=== PATIENT | female | born 1965 | race African-American/Black ===

== ENCOUNTER → 2016-11-25 | Outpatient (CLI) | payer MEDICAID ==
[2016-11-25 10:26] LABS: APPEARANCE,URINE SLIGHTLY-CLOUDY; BILIRUBIN,URINE NEGATIVE (NEGATIVE); GLUCOSE, URINE NEGATIVE (NEGATIVE); KETONES,URINE NEGATIVE (NEGATIVE); LEUKOCYTE ESTERASE,URINE TRACE (NEGATIVE); NITRITE,URINE POSITIVE (NEGATIVE); PROTEIN,URINE 30 mg/dL (NEGATIVE); URINE SPECIFIC GRAVITY 1.015; UROBILINOGEN,URINE NEGATIVE mg/dL (<2.0)
[2016-11-25 10:39] LABS: ANION GAP 9 (5-19); BLOOD UREA NITROGEN 16 mg/dL (7-20); CALCIUM 9.4 mg/dL (8.4-10.2); CARBON DIOXIDE 29 mmol/L (22-30); CHLORIDE 105 mmol/L (98-107); CREATININE RESULT 1.13 mg/dL (0.52-1.25); GLUCOSE 100 mg/dL (75-110); POTASSIUM 4.7 mmol/L (3.6-5.0); SODIUM 143.4 mmol/L (137-145)
[2016-11-26 12:38] LABS: CREATININE URINE 104.1 mg/dL (Not Estab.); MICROALBUMIN URINE 212.2 ug/mL (Not Estab.)
== END ==
LOC: OD 08:56
PROVIDERS: ATTEND Internal Medicine Nephrology
DX: N18.2 Chronic kidney disease, stage 2 (mild) (principal); R80.9 Proteinuria, unspecified
CPT/HCPCS: 36415; 80048; 81001; 82043; 82570

== ENCOUNTER → 2017-02-08 | Outpatient (CLI) | payer MEDICAID ==
--- NOTE | 2017-02-09 08:22 | XCELERA REPORT ---
[address] [address] Lower Extremity Arterial Evaluation Name: UYEN PAL Alec Age: 51 yrs Gender: Female : 1965 Patient Status: Outpatient Patient Location: Study Date: 02/08/2017 07:57 AM Procedure: A color flow and duplex scan of the lower extremity arteries was performed bilaterally with velocity and waveform anaylsis. Reason For Study: PVD Ordering Physician: ANGIE DOOLEY Performed By: Anne-Marie Briones Measurements and Calculations Right Left FLOOR PLAN ADJUSTER PSV 128.9 115.8 cm/sec Prox PFA PSV -63.5 53.1 cm/sec Prox SFA PSV 116.3 120.7 cm/sec Mid SFA PSV -86.4 -93.8 cm/sec Dist SFA PSV -90.4 -87.9 cm/sec Prox Pop A PSV 143.2 57.0 cm/sec Dist TAY PSV 65.3 59.7 cm/sec Dist COMMUNICATION ELECTRONIC TECHNICIAN PSV 136.9 144.6 cm/sec Tan Pedis PSV 86.8 41.5 cm/sec Right Side Arterial Evaluation Normal velocity and triphasic waveforms noted from the Common Femoral artery to the infregeniculate vessels. 0 % stenosis noted. Ankle Brachial index was not obtainable, due to non compressibility. PPG's are normal. Left Side Arterial Evaluation Normal velocity and triphasic waveforms noted from the Common Femoral artery to the infrageniculate vessels. 0 % stenosis noted. Ankle Brachial index was not obtainable, due to non compressibility. PPG's have moderately diminished amplitude, otherwise normal waveform. Interpretation Summary Mild hemodynamically significant lesions in the bilateral lower extremities, on duplex imaging, at rest. : ANGIE DOOLEY > Amadou Gar
== END ==
LOC: SP 07:38
PROVIDERS: ATTEND Podiatrist Foot & Ankle Surgery
DX: I73.9 Peripheral vascular disease, unspecified (principal)
CPT/HCPCS: 93925

== ENCOUNTER 2017-03-25 14:29 | Emergency (ER) | payer MEDICAID ==
[2017-03-25 14:38] VITALS: BP 180/108
--- NOTE | 2017-03-25 14:57 | ER Document Report ---
ED General - General Chief Complaint: Foot Injury Stated Complaint: FELL,RIGHT FOOT PAIN Time Seen by Provider: 03/25/17 14:55 Mode of Arrival: Ambulatory Information source: Patient Notes: Patient is a 51-year-old female who presents with right foot pain and swelling that started approximately noon today. She states she tripped in her left leg gave out when she was coming out of the store causing her to twist her right ankle and fell to the ground. She denies any head injury or loss of consciousness. She endorses associated tenderness and swelling but denies any fever, chills, numbness, tingling, weakness. Pain is worse with weightbearing. She has not taken any pain medication for this. TRAVEL OUTSIDE OF THE [place] IN LAST 30 DAYS: No - Related Data Allergies/Adverse Reactions: iodine [Iodine] Allergy (Intermediate, Verified 03/25/17 14:36) swelling, hives codeine [Codeine] Allergy (Unknown, Verified 03/25/17 14:36) VOMITING, TROUBLE BREATHING Penicillins Allergy (Unknown, Verified 03/25/17 14:36) Swelling Past Medical History - General Information source: Patient - Social History Smoking Status: Never Smoker Frequency of alcohol use: None Drug Abuse: None Family History: None - Past Medical History Cardiac Medical History: Reports: Hx Coronary Artery Disease, Hx Hypercholesterolemia, Hx Hypertension Denies: Hx Heart Attack Pulmonary Medical History: Reports: Hx Asthma Denies: Hx Bronchitis, Hx COPD, Hx Pneumonia, Hx Tuberculosis Neurological Medical History: Denies: Hx Cerebrovascular Accident, Hx Seizures Endocrine Medical History: Reports: Hx Diabetes Mellitus Type 2 Renal/ Medical History: Denies: Hx Peritoneal Dialysis Musculoskeltal Medical History: Denies Hx Arthritis Psychiatric Medical History: Reports: Hx Depression Past Surgical History: Reports: Hx Section - x2, Hx Cholecystectomy, Hx Hysterectomy - Immunizations Hx Diphtheria, Pertussis, Tetanus Vaccination: Yes Hx Pneumococcal Vaccination: 08/18/11 Review of Systems - Review of Systems Constitutional: No symptoms reported EENT: No symptoms reported Cardiovascular: No symptoms reported Respiratory: No symptoms reported Gastrointestinal: No symptoms reported Genitourinary: No symptoms reported Female Genitourinary: No symptoms reported Musculoskeletal: See HPI Skin: No symptoms reported Hematologic/Lymphatic: No symptoms reported Neurological/Psychological: No symptoms reported Physical Exam - Vital signs Vitals: Temp Pulse Resp BP Pulse Ox 97.2 F 74 18 180/108 H 100 03/25/17 14:31 03/25/17 14:31 03/25/17 14:31 03/25/17 14:31 03/25/17 14:31 - Notes Notes: PHYSICAL EXAM: CONSTITUTIONAL: Alert and oriented, well-appearing and in no acute distress. HENT: Normocephalic, atraumatic. Moist mucous membranes. EYES: Pupils equal round and reactive to light, EOM intact. Sclera anicteric, conjunctiva are normal. No entrapment. NECK: supple without lymphadenopathy. No midline tenderness or paraspinous muscle spasms. No step-offs or deformities. ROM intact. HEART: Regular rate and rhythm without murmurs. LUNGS: CTAB and equal. No wheezes, rales or rhonchi. EXTREMITIES: Right foot - tender to palpation over mid-distal tarsal/ metatarsals with soft tissue swelling, no erythema, warmth, ecchymosis or obvious deformity. Distal pulses intact. no pitting edema. No cyanosis. Cap Refill <3 seconds. NEURO: Cranial nerves grossly intact. Normal sensory/motor exams. PSYCH: Normal mood, normal affect. SKIN: Warm and dry. Normal turgor. No rashes or lesions noted. Course - Re-evaluation Re-evalutation: 03/25/17 15:14 Patient seen and examined. Significant swelling to dorsal surface of foot without deformity, neurovascular intact. Will give pain meds here. 03/25/17 16:14 Reviewed imaging studies - soft tissue swelling without fracture or dislocation. Discussed results with patient. Given DEEPAK wrap and post-op shoe for comfort and will give script for NSAIDs. Discussed RICE instructions, f/u with primary care doctor. At this time, will discharge with return precautions and follow-up recommendations. Verbal discharge instructions given at the bedside and opportunity for questions given. Medication warnings reviewed. Patient is in agreement with this plan and has verbalized understanding of return precautions and the need for primary care follow-up in the next 24-72 hours. - Vital Signs Vital signs: Temp Pulse Resp BP Pulse Ox 97.2 F 74 18 180/108 H 100 03/25/17 14:31 03/25/17 14:31 03/25/17 14:31 03/25/17 14:31 03/25/17 14:31 Procedures - Immobilization Right Dorsal Foot Pre-Proc Neuro Vasc Exam: Normal Immobilizer type: Deepak wrap, Post-op shoe Performed by: PCT Post-Proc Neuro Vasc Exam: Normal Alignment checked and good: Yes Discharge - Discharge Clinical Impression: Contusion of right foot, initial encounter Fall, accidental Qualifiers: Encounter type: initial encounter Qualified Code(s): W19.XXXA - Unspecified fall, initial encounter Condition: Stable Disposition: HOME, SELF-CARE Additional Instructions: You have been prescribed an anti-inflammatory,do not take with ibuprofen/motrin , advil. You can take tylenol with this medication. SPRAIN: Your injury is a sprain. A sprain results from stretching or tearing of the ligaments, usually from a twisting injury. The ligaments will require time and protection in order to heal properly. Many sprains are quite disabling and should be taken seriously. The usual initial treatment of sprains is cold packs, elevation, and rest of the injured area. Your physician has assessed the seriousness of your ligament injury, and has outlined a treatment plan. Understand that this treatment may change, depending on how you progress. If a re-examination was recommended, it is important that you follow up as instructed. Call the doctor any time if there is severe pain, numbness, or loss of function in the injured area. DEEPAK WRAP: A compression dressing (deepak wrap) has been placed. This helps hold the area still. It limits swelling and internal bleeding. The wrap should be comfortably snug -- not tight. You should feel a sense of pressure, but not severe pain under the wrap. Unless the physician tells you otherwise, you can adjust the wrap for comfort. If the wrap causes symptoms suggesting it's too tight -- uncomfortable pressure, swelling or discoloration beyond the wrap, numbness, or severe pain - - you must loosen the wrap. If these symptoms don't resolve promptly, return for re-evaluation. ICE & ELEVATION: Apply ice packs frequently against the painful area. Many different schedules are recommended, such as "20 minutes on, 20 minutes off" or "one hour ice, two hours rest." If you need to work, you may need to go longer between ice treatments. You should plan to have the area ice packed AT LEAST one- fourth of the time. The ice should be applied over the wrap, tape, or splint, or over a layer of cloth -- not directly against the skin. Some ice bags have a built-in cloth and can be put directly on the skin. Your injured part should be elevated as much as possible over the next 48 hours. Try to keep the injury above the level of the heart. Avoid use of the injured area. Elevation and rest will decrease the swelling. USE OF AXGO-MRG-[id number] IBUPROFEN: Ibuprofen (Advil, Nuprin, Medipren, Motrin IB) is a medication for fever and pain control. In addition, it has anti- inflammatory effects which may be beneficial, especially in the treatment of injuries. It's best to take ibuprofen with food. Persons with ulcer disease or allergy to aspirin should notify their physician of this before taking ibuprofen. Ibuprofen can be given every four to six hours, for a total of four doses daily. Age Pain or fever dose Antiinflammatory dose 6-8 yr 200 mg (1 tab) 200 mg (1 tab) 9-11 yr 200 mg (1 tab) 200-400 mg (1-2 tab) 11-14 yr 200-400 mg (1-2 tab) 400 mg (2 tab) 15-adult 400 mg (2 tab) 600 mg (3 tab) FOLLOW-UP CARE: If you have been referred to a physician for follow-up care, call the physician s office for an appointment as you were instructed or within the next two days. If you experience worsening or a significant change in your symptoms, notify the physician immediately or return to the Emergency Department at any time for re-evaluation. Prescriptions: Ketorolac Tromethamine [Toradol 10 mg Tablet] 10 mg PO Q8HP PRN #20 tablet PRN Reason: Forms: Elevated Blood Pressure Referrals: MARBELLA INMAN MD [Primary Care Provider] - Follow up in 3-5 days
[2017-03-25] MEDS ORDERED: IBUPROFEN 600 MG TABLET PO ONE (15:12)
--- NOTE | 2017-03-25 15:48 | RADIOLOGY REPORT (SQ) ---
EXAM DESCRIPTION: FOOT RIGHT COMPLETE COMPLETED DATE/TIME: 03/25/2017 2:59 pm REASON FOR STUDY: fall COMPARISON: None. NUMBER OF VIEWS: Three views. TECHNIQUE: AP, lateral and oblique radiographic images acquired of the right foot. LIMITATIONS: None. FINDINGS: MINERALIZATION: Normal. BONES: No acute fracture or dislocation. No worrisome bone lesions. JOINTS: Degenerative changes. SOFT TISSUES: Diffuse swelling. No foreign body. OTHER: No other significant finding. IMPRESSION: Soft tissue injury. TECHNICAL DOCUMENTATION: JOB ID: [id number] [employer]- All Rights Reserved
== END 2017-03-25 16:35 | disposition home or self-care (01) ==
LOC: ER 14:29
DX: S90.31XA Contusion of right foot, initial encounter (principal); M79.89 Other specified soft tissue disorders; X50.1XXA Overexertion from prolonged static or awkward postures, initial encounter
CPT/HCPCS: 99283; 73630; J3490

== ENCOUNTER 2017-10-21 06:20 | Day surgery (SDC) | payer MEDICAID ==
[2017-10-20 15:09] LABS: ABSOLUTE LYMPHOCYTES (AUTO) 1.4 10^3/uL (0.5-4.7); ABSOLUTE MONOCYTES (AUTO) 0.2 10^3/uL (0.1-1.4); BASOPHILS % (AUTO) 0.8 % (0-2); EOSINOPHILS % (AUTO) 0.9 % (0-6); HEMATOCRIT 37.7 % (36.0-47.0); HEMOGLOBIN 12.7 g/dL (12.0-15.5); LYMPHOCYTES % (AUTO) 37.2 % (13-45); MEAN CORPUSCULAR HEMOGLOBIN 27.6 pg (27.0-33.4); MEAN CORPUSCULAR HGB CONC 33.6 g/dL (32.0-36.0); MEAN CORPUSCULAR VOLUME 82 fl (80-97); MONOCYTES % (AUTO) 6.7 % (3-13); PLATELET COUNT 201 10^3/uL (150-450); RED CELL DISTRIBUTION WIDTH 14.2 % (11.5-14.0); SEGMENTED NEUTROPHILS % (AUTO) 54.4 % (42-78); TOTAL CELLS COUNTED % (AUTO) 100 %; WHITE BLOOD COUNT 3.6 10^3/uL (4.0-10.5)
[2017-10-20 15:16] LABS: APPEARANCE,URINE SLIGHTLY-CLOUDY; BILIRUBIN,URINE NEGATIVE (NEGATIVE); COLOR,URINE YELLOW; GLUCOSE, URINE NEGATIVE (NEGATIVE); KETONES,URINE NEGATIVE (NEGATIVE); LEUKOCYTE ESTERASE,URINE TRACE (NEGATIVE); NITRITE,URINE POSITIVE (NEGATIVE); PROTEIN,URINE 100 mg/dL (NEGATIVE); URINE SPECIFIC GRAVITY 1.017; UROBILINOGEN,URINE NEGATIVE mg/dL (<2.0)
[~2017-10-21 06:20] MED LIST: CEFAZOLIN 1 GM/D5W RTU 1 GM/50 ML RTUPB IV PRN; CLINDAMYCIN 600 MG/D5W RTU 600 MG/50 ML RTUPB IV PRN; RINGERS SOLUTION,LACTATED 1,000 ML IV PRN
[2017-10-21] MEDS ORDERED: DIPHENHYDRAMINE HCL 50 MG/ML VIAL ONE (06:52)
[2017-10-21] MEDS ORDERED: LIDOCAINE 2% INJ (20 MG/ML) 20 ML MDV ONE (06:52)
[2017-10-21] MEDS ORDERED: FENTANYL CITRATE INJ/PF 100 MCG/2 ML AMPUL ONE ×2 (06:53)
[2017-10-21] MEDS ORDERED: MIDAZOLAM 2 MG/2 ML INJ ONE (06:53)
[2017-10-21] MEDS ORDERED: BUPIVACAINE HCL 0.5 % INJ/PF 30 ML SDV ONE (06:53)
[2017-10-21] MEDS ORDERED: PROPOFOL INJ 200 MG/20 ML VIAL IV ONE (06:54)
[2017-10-21] MEDS ORDERED: LIDOCAINE 2% INJ-PF (20 MG/ML) 10 ML AMPUL ONE (06:54)
[2017-10-21] MEDS ORDERED: KETOROLAC TROMETHAMINE 60 MG/2 ML SDV ONE (06:54)
--- NOTE | 2017-10-21 13:42 | EKG REPORT ---
SEVERITY:- ABNORMAL ECG - SINUS RHYTHM PROBABLE LEFT ATRIAL ABNORMALITY ABNORMAL T, CONSIDER ISCHEMIA, ANT-LAT LEADS : Confirmed by: Isaiah Dior MD 21-Oct-2017 13:40:55
== END 2017-10-21 08:55 | disposition home or self-care (01) ==
LOC: SC 06:20
PROVIDERS: ATTEND Podiatrist Foot & Ankle Surgery
DX: M20.12 Hallux valgus (acquired), left foot (principal); Z53.8 Procedure and treatment not carried out for other reasons; I10 Essential (primary) hypertension; E11.9 Type 2 diabetes mellitus without complications; J45.909 Unspecified asthma, uncomplicated; Z88.5 Allergy status to narcotic agent; Z88.0 Allergy status to penicillin; Z79.899 Other long term (current) drug therapy; Z79.84 Long term (current) use of oral hypoglycemic drugs; Z79.51 Long term (current) use of inhaled steroids
CPT/HCPCS: 36415; 82962; 85025; 81001; 93005; 93010; 28306; J2250; S0077; J3010; J2704; J3490; 1480; J1200; J1885

== ENCOUNTER 2017-10-21 11:36 | Inpatient (IN) | payer MEDICAID ==
--- NOTE | 2017-10-21 12:35 | ER Document Report ---
ED Medical Screen (RME) - General Chief Complaint: High Blood Pressure Stated Complaint: BLOOD PRESSURE ISSUES Time Seen by Provider: 10/21/17 12:26 Notes: 50-year-old female patient with difficult to control hypertension on multiple hypertensive medications. She was at the surgery care today for elective surgery on the foot, and her blood pressure was elevated, after she was put on for anesthesia the blood pressure went quite high. The procedure was not done. He was sent to her primary care provider's office. She was given 0.6 mg of clonidine in the office which is her normal 3 time a day dose of that medication. She was sent to the emergency room, according to the patient she was supposed to be admitted for 24 hour observation. At this time she feels well, she had a slight headache earlier. I have greeted and performed a rapid initial assessment of this patient. A comprehensive ED assessment and evaluation of the patient, analysis of test results and completion of the medical decision making process will be conducted by additional ED providers. TRAVEL OUTSIDE OF THE [place] IN LAST 30 DAYS: No - Related Data Allergies/Adverse Reactions: iodine [Iodine] Allergy (Intermediate, Verified 10/21/17 12:20) swelling, hives codeine [Codeine] Allergy (Unknown, Verified 10/21/17 12:20) VOMITING, TROUBLE BREATHING Penicillins Allergy (Unknown, Verified 10/21/17 12:20) Swelling Past Medical History - Social History Chew tobacco use (# tins/day): No Frequency of alcohol use: None Drug Abuse: None - Past Medical History Cardiac Medical History: Reports: Hx Coronary Artery Disease, Hx Hypercholesterolemia, Hx Hypertension Denies: Hx Heart Attack Pulmonary Medical History: Reports: Hx Asthma Denies: Hx Bronchitis, Hx COPD, Hx Pneumonia, Hx Tuberculosis Neurological Medical History: Denies: Hx Cerebrovascular Accident, Hx Seizures Endocrine Medical History: Reports: Hx Diabetes Mellitus Type 2 Renal/ Medical History: Denies: Hx Peritoneal Dialysis GI Medical History: Denies: Hx Hepatitis, Hx Hiatal Hernia, Hx Ulcer Musculoskeltal Medical History: Denies Hx Arthritis Psychiatric Medical History: Reports: Hx Depression Infectious Medical History: Denies: Hx Hepatitis Past Surgical History: Reports: Hx Section, Hx Cholecystectomy, Hx Hysterectomy. Denies: Hx Mastectomy, Hx Open Heart Surgery, Hx Pacemaker - Immunizations Hx Diphtheria, Pertussis, Tetanus Vaccination: Yes Physical Exam - Vital signs Vitals: Temp Pulse Resp BP Pulse Ox 97.9 F 82 18 202/103 H 97 10/21/17 11:47 10/21/17 11:47 10/21/17 11:47 10/21/17 11:47 10/21/17 11:47 Course - Vital Signs Vital signs: Temp Pulse Resp BP Pulse Ox 97.9 F 82 18 202/103 H 97 10/21/17 11:47 10/21/17 11:47 10/21/17 11:47 10/21/17 11:47 10/21/17 11:47
[2017-10-21 13:30] LABS: ABSOLUTE LYMPHOCYTES (AUTO) 1.6 10^3/uL (0.5-4.7); ABSOLUTE MONOCYTES (AUTO) 0.3 10^3/uL (0.1-1.4); ABSOLUTE NEUT (AUTO) 2.1 10^3/uL (1.7-8.2); APPEARANCE,URINE CLEAR; BASOPHILS % (AUTO) 0.9 % (0-2); BILIRUBIN,URINE NEGATIVE (NEGATIVE); COLOR,URINE COLORLESS; EOSINOPHILS % (AUTO) 0.8 % (0-6); GLUCOSE, URINE NEGATIVE (NEGATIVE); HEMOGLOBIN 13.5 g/dL (12.0-15.5); KETONES,URINE NEGATIVE (NEGATIVE); LEUKOCYTE ESTERASE,URINE NEGATIVE (NEGATIVE); LYMPHOCYTES % (AUTO) 40.2 % (13-45); MEAN CORPUSCULAR HEMOGLOBIN 27.4 pg (27.0-33.4); MEAN CORPUSCULAR HGB CONC 32.8 g/dL (32.0-36.0); MEAN CORPUSCULAR VOLUME 84 fl (80-97); MONOCYTES % (AUTO) 6.3 % (3-13); NITRITE,URINE NEGATIVE (NEGATIVE); PLATELET COUNT 196 10^3/uL (150-450); PROTEIN,URINE 30 mg/dL (NEGATIVE); RED BLOOD COUNT 4.92 10^6/uL (3.72-5.28); RED CELL DISTRIBUTION WIDTH 14.6 % (11.5-14.0); SEGMENTED NEUTROPHILS % (AUTO) 51.8 % (42-78); TOTAL CELLS COUNTED % (AUTO) 100 %; URINE SPECIFIC GRAVITY 1.004; UROBILINOGEN,URINE NEGATIVE mg/dL (<2.0)
[2017-10-21] MEDS ORDERED: HYDRALAZINE HCL INJ/PF 20 MG/1 ML SDV IV ONE (13:30)
--- NOTE | 2017-10-21 13:32 | ER Document Report ---
ED General - General Chief Complaint: High Blood Pressure Stated Complaint: BLOOD PRESSURE ISSUES Time Seen by Provider: 10/21/17 12:26 Mode of Arrival: Ambulatory Information source: Patient Notes: 52-year-old female extensive history of hypertension presents with complaints of high blood pressure mild headache. Patient notes that symptoms have been ongoing for a few days, she took her medications went to have surgery performed on her left foot today but it was noted that her blood pressure was 220s over 120s, she was sent to her primary care physician's office who immediately sent her in for evaluation TRAVEL OUTSIDE OF THE [place] IN LAST 30 DAYS: No - HPI Onset: Last week Onset/Duration: Persistent Quality of pain: Achy Severity: Mild Pain Level: 1 Associated symptoms: Headache Exacerbated by: Denies Relieved by: Denies Similar symptoms previously: Yes Recently seen / treated by doctor: Yes - Related Data Allergies/Adverse Reactions: iodine [Iodine] Allergy (Intermediate, Verified 10/21/17 12:20) swelling, hives codeine [Codeine] Allergy (Unknown, Verified 10/21/17 12:20) VOMITING, TROUBLE BREATHING Penicillins Allergy (Unknown, Verified 10/21/17 12:20) Swelling Past Medical History - Social History Smoking Status: Never Smoker Cigarette use (# per day): No Chew tobacco use (# tins/day): No Smoking Education Provided: No Frequency of alcohol use: None Drug Abuse: None Family History: Hypertension, Other Patient has suicidal ideation: No Patient has homicidal ideation: No - Past Medical History Cardiac Medical History: Reports: Hx Coronary Artery Disease, Hx Hypercholesterolemia, Hx Hypertension Denies: Hx Heart Attack Pulmonary Medical History: Reports: Hx Asthma Denies: Hx Bronchitis, Hx COPD, Hx Pneumonia, Hx Tuberculosis Neurological Medical History: Denies: Hx Cerebrovascular Accident, Hx Seizures Endocrine Medical History: Reports: Hx Diabetes Mellitus Type 2 Renal/ Medical History: Denies: Hx Peritoneal Dialysis GI Medical History: Denies: Hx Hepatitis, Hx Hiatal Hernia, Hx Ulcer Musculoskeltal Medical History: Denies Hx Arthritis Psychiatric Medical History: Reports: Hx Depression Infectious Medical History: Denies: Hx Hepatitis Past Surgical History: Reports: Hx Section, Hx Cholecystectomy, Hx Hysterectomy. Denies: Hx Mastectomy, Hx Open Heart Surgery, Hx Pacemaker - Immunizations Hx Diphtheria, Pertussis, Tetanus Vaccination: Yes Hx Pneumococcal Vaccination: 08/18/11 Review of Systems - Review of Systems Notes: REVIEW OF SYSTEMS: CONSTITUTIONAL : Denies fever, chills, or sweats. Denies recent illness. EENT: Denies eye, ear, throat, or mouth pain or symptoms. Denies nasal or sinus congestion or discharge. Denies throat, tongue, or mouth swelling or difficulty swallowing. CARDIOVASCULAR: Denies chest pain. Denies palpitations or racing or irregular heart beat. Denies ankle edema. RESPIRATORY: Denies cough, cold, or chest congestion. Denies shortness of breath, difficulty breathing, or wheezing. GASTROINTESTINAL: Denies abdominal pain or distention. Denies nausea, vomiting , or diarrhea. Denies blood in vomitus, stools, or per rectum. Denies black, tarry stools. Denies constipation. GENITOURINARY: Denies difficulty urinating, painful urination, burning, frequency, blood in urine, or discharge. FEMALE GENITOURINARY: Denies vaginal bleeding, heavy or abnormal periods, irregular periods. Denies vaginal discharge or odor. MUSCULOSKELETAL: Denies back or neck pain or stiffness. Denies joint pain or swelling. SKIN: Denies rash, lesions or sores. HEMATOLOGIC : Denies easy bruising or bleeding. LYMPHATIC: Denies swollen, enlarged glands. NEUROLOGICAL: Admits to headache PSYCHIATRIC: Denies anxiety or stress. Denies depression, suicidal ideation, or homicidal ideation. ALL OTHER SYSTEMS REVIEWED AND NEGATIVE. PHYSICAL EXAMINATION: GENERAL: Well-appearing, well-nourished and in no acute distress. Patient is noted to be significantly hypertensive HEAD: Atraumatic, normocephalic. EYES: Pupils equal round and reactive to light, extraocular movements intact, conjunctiva are normal. ENT: Nares patent, oropharynx clear without exudates. Moist mucous membranes. NECK: Normal range of motion, supple without lymphadenopathy LUNGS: Breath sounds clear to auscultation bilaterally and equal. No wheezes rales or rhonchi. HEART: Regular rate and rhythm without murmurs ABDOMEN: Soft, nontender, nondistended abdomen. No guarding, no rebound. No masses appreciated. Female : deferred Musculoskeletal: Normal range of motion, no pitting or edema. No cyanosis. NEUROLOGICAL: Cranial nerves grossly intact. Normal speech, normal gait. Normal sensory, motor exams PSYCH: Normal mood, normal affect. SKIN: Warm, Dry, normal turgor, no rashes or lesions noted. Dictation was performed using [employer] voice recognition software Physical Exam - Vital signs Vitals: Temp Pulse Resp BP Pulse Ox 97.9 F 82 18 202/103 H 97 10/21/17 11:47 10/21/17 11:47 10/21/17 11:47 10/21/17 11:47 10/21/17 11:47 Course - Re-evaluation Re-evalutation: 10/21/17 17:04 Upon arrival to the emergency department patient was noted to be hypertensive, she had been given 0.6 mg of clonidine by her primary care physician, blood pressure did decrease to 200/110, given mild improvement I did try hydralazine through the IV blood pressure 1 point did go down to 170s over 90s but immediately returned. Patient given level of hypertension will be observed in the IMCU - Vital Signs Vital signs: Temp Pulse Resp BP Pulse Ox 97.9 F 82 20 215/129 H 100 10/21/17 11:47 10/21/17 11:47 10/21/17 16:31 10/21/17 16:31 10/21/17 16:31 - Laboratory Result Diagrams: 10/21/17 12:47 10/21/17 12:47 Laboratory results interpreted by me: 10/21/17 10/21/17 10/21/17 12:47 12:47 12:47 RDW 14.6 H Sodium 145.1 H Est GFR ( Amer) 57 L Est GFR (Non-Af Amer) 47 L Creatine Kinase 278 H Urine Protein 30 H - Diagnostic Test Radiology reviewed: Image reviewed - CT head noted no acute abnormality, Reports reviewed - EKG Interpretation by [place] EKG shows normal: Sinus rhythm, Banks, Intervals, QRS Complexes Critical Care Note - Critical Care Note Total time excluding time spent on procedures (mins): 39 Comments: 39 minutes of critical care time spent in direct contact evaluating and reevaluating the patient, treating symptoms, reviewing labs and studies and speaking with family and consultants excluding any procedures Discharge - Discharge Clinical Impression: Hypertensive emergency Headache Qualifiers: Headache type: unspecified Headache chronicity pattern: unspecified pattern Intractability: not intractable Qualified Code(s): R51 - Headache Condition: Stable Disposition: ADMITTED OBSERVATION Admitting Provider: Lacie Unit Admitted: [facility]
--- NOTE | 2017-10-21 13:42 | EKG REPORT ---
SEVERITY:- ABNORMAL ECG - SINUS RHYTHM LEFT ATRIAL ABNORMALITY PROBABLE LEFT VENTRICULAR HYPERTROPHY ABNORMAL T, CONSIDER ISCHEMIA, LATERAL LEADS : Confirmed by: Isaiah Diro MD 21-Oct-2017 13:40:43
[2017-10-21 13:53] LABS: ALANINE AMINOTRANSFERASE 32 U/L (9-52); ALBUMIN 4.5 g/dL (3.5-5.0); ALKALINE PHOSPHATASE 77 U/L (38-126); ANION GAP 13 (5-19); ASPARTATE AMINO TRANSFERASE 29 U/L (14-36); BILIRUBIN,DIRECT 0.4 mg/dL (0.0-0.4); BILIRUBIN,TOTAL 0.8 mg/dL (0.2-1.3); BLOOD UREA NITROGEN 20 mg/dL (7-20); CALCIUM 9.8 mg/dL (8.4-10.2); CARBON DIOXIDE 29 mmol/L (22-30); CHLORIDE 103 mmol/L (98-107); CREATINE KINASE 278 U/L (30-135); GLUCOSE 102 mg/dL (75-110); SODIUM 145.1 mmol/L (137-145); TOTAL PROTEIN 8.2 g/dL (6.3-8.2)
[2017-10-21] MEDS ORDERED: HYDRALAZINE HCL 50 MG TABLET PO ONE (14:47)
--- NOTE | 2017-10-21 17:46 | PDOC H&P ---
History of Present Illness Admission Date/PCP: 10/21/17 15:22 MARBELLA INMAN History of Present Illness: UYEN PAL is a 52 year old female known to my practice who was referred to the office earlier today from [facility] due severely elevated blood pressure while trying to get a left foot osteotomy procedure. Patient reported associated feeling of tiredness and wobbling gait with walking. She reported slight headache. She denied definite chest pain, palpitation or difficulty with breathing. In the office her blood pressure was still very elevated at about 201/113 mmHg necessitating administration of Clonidine 0.2 mg orally x 1 dose and referral to the ED at [facility] for further evaluation and management. Patient reported compliance with her medication and dietary restrictions. She denied illicit drug usage, alcohol, or tobacco product usage. Her elevation in the ED was significant for elevated blood pressure with slight response to IV Hydralazine administration but rebound in less than 1 hour thereafter. She was started on oral Hydralazine with IV administration if systolic blood pressure is over 160mmHg. Caution was exercise due to patient's long standing history of severe hypertension and extensive workup did not reveal any causative factor. Her morbidities include Asthma, Hypertension, Coronary Artery Disease, Hyperlipidemia, Diabetes Mellitus Type 2, and Depression. She was advised hospitalization on observation bed for further evaluation and management of her severe hypertension with headache. Past Medical History Cardiac Medical History: Reports: Coronary Artery Disease, Hyperlipidema, Hypertension Denies: Myocardial Infarction Pulmonary Medical History: Reports: Asthma Denies: Bronchitis, Chronic Obstructive Pulmonary Disease (COPD), Pneumonia, Tuberculosis Neurological Medical History: Denies: Seizures Endocrine Medical History: Reports: Diabetes Mellitus Type 2 GI Medical History: Denies: Hepatitis, Hiatal Hernia Musculoskeltal Medical History: Denies: Arthritis Psychiatric Medical History: Reports: Depression Hematology: Denies: Anemia, Sickle Cell Disease Past Surgical History Past Surgical History: Reports: Section, Cholecystectomy, Hysterectomy Denies: Amputation, Mastectomy, Pacemaker Social History Smoking Status: Never Smoker Hx Recreational Drug Use: No Hx Prescription Drug Abuse: No - Advance Directive Resuscitation Status: Full Code Family History Family History: Hypertension, Other Parental Family History Reviewed: Yes Children Family History Reviewed: Yes Sibling(s) Family History Reviewed.: Yes Medication/Allergy Home Medications: Escitalopram Oxalate [Lexapro 10 mg Tablet] 10 mg PO QHS 01/05/14 Fluticasone/Salmeterol [Advair 100-50 Diskus 28 Dose] 1 inh IH Q12H 07/15/13 Valsartan [Diovan] 320 mg PO DAILY 07/15/13 Metformin HCl [Glucophage 500 mg Tablet] 500 mg PO BID 09/12/13 Dexlansoprazole [Dexilant 60 mg Capsule] 60 mg PO DAILY 10/18/14 Clonidine HCl [Catapres 0.3 mg Tablet] 0.3 mg PO Q8 #90 tablet 12/26/15 Ketorolac Tromethamine [Toradol 10 mg Tablet] 10 mg PO Q8HP PRN #20 tablet 03/25 Allergies/Adverse Reactions: iodine [Iodine] Allergy (Intermediate, Verified 10/21/17 12:20) swelling, hives codeine [Codeine] Allergy (Unknown, Verified 10/21/17 12:20) VOMITING, TROUBLE BREATHING Penicillins Allergy (Unknown, Verified 10/21/17 12:20) Swelling Review of Systems Constitutional: PRESENT: headache(s). ABSENT: as per HPI, anorexia, chills, fatigue, fever(s), night sweats, weakness, weight gain, weight loss, other Eyes: PRESENT: visual disturbances - CAWG Ears: ABSENT: hearing changes Nose, Mouth, and Throat: PRESENT: headache(s). ABSENT: as per HPI, mouth pain, sore throat, vertigo, other Cardiovascular: ABSENT: chest pain, dyspnea on exertion, edema, orthropnea, palpitations Respiratory: ABSENT: cough, hemoptysis Gastrointestinal: ABSENT: abdominal pain, constipation, diarrhea, hematemesis, hematochezia, nausea, vomiting Genitourinary: ABSENT: dysuria, hematuria Musculoskeletal: ABSENT: joint swelling Integumentary: ABSENT: rash, wounds Neurological: ABSENT: abnormal gait, abnormal speech, confusion, dizziness, focal weakness, syncope Psychiatric: ABSENT: anxiety, depression, homidical ideation, suicidal ideation Endocrine: ABSENT: cold intolerance, heat intolerance, polydipsia, polyuria Hematologic/Lymphatic: ABSENT: easy bleeding, easy bruising, lymphadenopathy Allergic/Immunologic: ABSENT: seasonal rhinorrhea Physical Exam Vital Signs: Temp Pulse Resp BP Pulse Ox 97.9 F 82 20 215/129 H 100 10/21/17 11:47 10/21/17 11:47 10/21/17 16:31 10/21/17 16:31 10/21/17 16:31 General appearance: PRESENT: no acute distress, obese Head exam: PRESENT: atraumatic, normocephalic Eye exam: PRESENT: conjunctiva pink, EOMI, PERRLA. ABSENT: scleral icterus Ear exam: PRESENT: normal external ear exam Mouth exam: PRESENT: moist, tongue midline Neck exam: PRESENT: full ROM. ABSENT: carotid bruit, JVD, lymphadenopathy, thyromegaly Respiratory exam: PRESENT: clear to auscultation sherry Cardiovascular exam: PRESENT: RRR. ABSENT: diastolic murmur, rubs, systolic murmur Pulses: PRESENT: normal dorsalis pedis pul, +2 pedal pulses bilateral Vascular exam: PRESENT: normal capillary refill. ABSENT: pallor GI/Abdominal exam: PRESENT: normal bowel sounds, soft. ABSENT: distended, guarding, mass, organolmegaly, rebound, tenderness Rectal exam: PRESENT: deferred Extremities exam: ABSENT: pedal edema Musculoskeletal exam: PRESENT: normal inspection Neurological exam: PRESENT: alert, awake, oriented to person, oriented to place , oriented to time, oriented to situation, CN II-XII grossly intact. ABSENT: motor sensory deficit Psychiatric exam: PRESENT: appropriate affect, normal mood. ABSENT: homicidal ideation, suicidal ideation Skin exam: PRESENT: dry, intact, warm. ABSENT: cyanosis, rash Results Laboratory Results: I reviewed her lab results on Icera and form significant part of my medical decision making. Assessment & Plan - Diagnosis (1) Accelerated essential hypertension Is this a current diagnosis for this admission?: Yes Plan: See admitting attending physician orders. (2) Headache Qualifiers: Headache type: unspecified Headache chronicity pattern: unspecified pattern Intractability: not intractable Qualified Code(s): R51 - Headache Is this a current diagnosis for this admission?: Yes Plan: See admitting attending physician orders. (3) Diabetes mellitus type 2 in obese Is this a current diagnosis for this admission?: Yes Plan: See admitting attending physician orders. (4) CAD (coronary artery disease) Qualifiers: Coronary Disease-Associated Artery/Lesion type: [place] artery Associated angina: without angina Is this a current diagnosis for this admission?: Yes Plan: See admitting attending physician orders. (5) Hyperlipidemia Qualifiers: Hyperlipidemia type: pure hypercholesterolemia Qualified Code(s): E78.00 - Pure hypercholesterolemia, unspecified; E78.0 - Pure hypercholesterolemia Is this a current diagnosis for this admission?: Yes Plan: See admitting attending physician orders. (6) Asthma Qualifiers: Asthma severity: unspecified severity Asthma persistence: intermittent Is this a current diagnosis for this admission?: Yes Plan: See admitting attending physician orders. (7) Depression Qualifiers: Depression Type: major depressive disorder Major depression recurrence: recurrent Active/Remission status: in remission of unspecified degree Qualified Code(s): F33.40 - Major depressive disorder, recurrent, in remission, unspecified Is this a current diagnosis for this admission?: Yes Plan: See admitting attending physician orders. (8) BMI 39.0-39.9,adult Is this a current diagnosis for this admission?: Yes Plan: See admitting attending physician orders. - Time Time Spent: 50 to 70 Minutes Medications reviewed and adjusted accordingly: Yes Anticipated discharge: Home Within: within 48 hours - Plan Summary Plan Summary: See admitting attending physician orders.
[2017-10-21] MEDS: ISOSORBIDE DINITRATE 20 MG TABLET PO SCH ×2 (18:04→23:06)
[2017-10-21] MEDS: HYDRALAZINE HCL 50 MG TABLET PO SCH ×2 (18:05→23:05)
[2017-10-21] MEDS: HYDRALAZINE HCL INJ/PF 20 MG/1 ML SDV IV PRN (18:05)
[2017-10-21] MEDS: METFORMIN HCL 500 MG TABLET PO SCH (18:06)
[2017-10-21] MEDS: AMLODIPINE BESYLATE 5 MG TABLET PO SCH (18:06)
[2017-10-21] MEDS ORDERED: ENOXAPARIN SODIUM INJ 40 MG/0.4 ML DISP.SYRIN SUBCUT ONE (18:30)
[2017-10-21] MEDS: FLUTICASONE/SALMETEROL DISKUS 100-50 MCG/DOSE IH SCH (21:41)
[2017-10-21] MEDS ORDERED: ESCITALOPRAM OXALATE 10 MG TABLET PO SCH (22:00)
[2017-10-21] MEDS ORDERED: METHYLDOPA 250 MG TABLET PO SCH (22:00)
[2017-10-22] MEDS: ACETAMINOPHEN 325 MG TABLET PO PRN ×2 (00:26→06:09)
[2017-10-22] MEDS: ISOSORBIDE DINITRATE 20 MG TABLET PO SCH ×2 (05:05→13:38)
[2017-10-22] MEDS: HYDRALAZINE HCL 50 MG TABLET PO SCH ×2 (05:05→13:37)
[2017-10-22] MEDS: AMLODIPINE BESYLATE 5 MG TABLET PO SCH (05:05)
[2017-10-22] MEDS ORDERED: LANSOPRAZOLE 30 MG TAB.RAP.DR PO SCH (06:00)
[2017-10-22] MEDS ORDERED: VALSARTAN 160 MG TABLET PO SCH (10:00)
[2017-10-22] MEDS ORDERED: (PENDING PHARMACY ID) (Valsartan [Diovan] 320 MG) PO SCH (10:00)
[2017-10-22] MEDS ORDERED: ONDANSETRON 4 MG TAB.RAPDIS ONE (10:56)
[2017-10-22] MEDS ORDERED: ONDANSETRON 4 MG TAB.RAPDIS PO PRN (11:05)
[2017-10-22] MEDS: FLUTICASONE/SALMETEROL DISKUS 100-50 MCG/DOSE IH SCH ×2 (11:20→21:15)
[2017-10-22] MEDS: ENOXAPARIN SODIUM INJ 40 MG/0.4 ML DISP.SYRIN SUBCUT SCH (11:21)
[2017-10-22] MEDS ORDERED: ONDANSETRON HCL 8 MG TABLET PO PRN (11:48)
[2017-10-22] MEDS: METFORMIN HCL 500 MG TABLET PO SCH (11:49)
--- NOTE | 2017-10-22 12:36 | PDOC PROGRESS REPORT ---
Subjective Progress Note for:: 10/22/17 Subjective:: Patient admitted for the management of hypertensive emergency, she complained of nausea ,vomiting, she is not able to keep any food down Reason For Visit: ACCELERATED HYPERTENSION WITH HEADACHE Physical Exam Vital Signs: Temp Pulse Resp BP Pulse Ox 98.4 F 85 15 153/86 H 98 10/22/17 07:32 10/22/17 07:32 10/22/17 07:32 10/22/17 07:32 10/22/17 07:32 Intake & Output 10/21/17 10/22/17 10/23/17 06:59 06:59 06:59 Intake Total 235 Balance 235 Weight 105.2 kg General appearance: PRESENT: no acute distress, well-developed, well-nourished Head exam: PRESENT: atraumatic, normocephalic Eye exam: PRESENT: conjunctiva pink, EOMI, PERRLA Ear exam: PRESENT: normal external ear exam Mouth exam: PRESENT: moist, tongue midline Neck exam: PRESENT: full ROM Respiratory exam: PRESENT: clear to auscultation sherry Cardiovascular exam: PRESENT: RRR, +S1, +S2 Pulses: PRESENT: normal dorsalis pedis pul, +2 pedal pulses bilateral Vascular exam: PRESENT: normal capillary refill GI/Abdominal exam: PRESENT: normal bowel sounds, soft Rectal exam: PRESENT: deferred Neurological exam: PRESENT: alert, awake, oriented to person, oriented to place , oriented to time, oriented to situation, CN II-XII grossly intact. ABSENT: motor sensory deficit Psychiatric exam: PRESENT: appropriate affect, normal mood. ABSENT: homicidal ideation, suicidal ideation Skin exam: PRESENT: dry, intact, warm. ABSENT: cyanosis, rash Assessment & Plan - Diagnosis (1) Hypertensive emergency Is this a current diagnosis for this admission?: Yes Plan: Continue present treatment (2) Vomiting Qualifiers: Vomiting type: unspecified Nausea presence: without nausea Is this a current diagnosis for this admission?: Yes Plan: Ordered KUB, start Zofran IV as needed
[2017-10-22] MEDS: ONDANSETRON HCL INJ/PF 4 MG/2 ML SDV IV PRN ×2 (13:05→18:28)
--- NOTE | 2017-10-22 14:34 | RADIOLOGY REPORT (SQ) ---
EXAM DESCRIPTION: KUB/ABDOMEN (SINGLE VIEW) COMPLETED DATE/TIME: 10/22/2017 1:10 pm REASON FOR STUDY: vomiting COMPARISON: None. NUMBER OF VIEWS: Two views. TECHNIQUE: Supine radiographic image of the abdomen acquired. LIMITATIONS: None. FINDINGS: BOWEL GAS PATTERN: Normal bowel gas pattern. No dilated loops. CALCIFICATIONS: No suspicious calcifications. SOFT TISSUES: No gross mass or suggestion of organomegaly. HARDWARE: Surgical clips in the right upper quadrant. BONES: No acute fracture. No worrisome bone lesions. OTHER: No other significant finding. IMPRESSION: NO RADIOGRAPHIC EVIDENCE FOR ACUTE ABDOMINAL DISEASE. TECHNICAL DOCUMENTATION: JOB ID: [id number] [employer]- All Rights Reserved Reading location - IP/workstation name: [email or web address]
[2017-10-22] MEDS ORDERED: PHARMACY COMMUNICATION ORDER MC NR (15:00)
[2017-10-22] MEDS: HYDRALAZINE HCL INJ/PF 20 MG/1 ML SDV IV PRN (15:59)
--- NOTE | 2017-10-22 16:00 | RADIOLOGY REPORT (SQ) ---
EXAM DESCRIPTION: KUB/ABDOMEN (SINGLE VIEW) COMPLETED DATE/TIME: 10/22/2017 3:48 pm REASON FOR STUDY: Check Placement of NG Tube COMPARISON: 10/22/2017 NUMBER OF VIEWS: One view. TECHNIQUE: Supine radiographic image of the abdomen acquired. LIMITATIONS: None. FINDINGS: BOWEL GAS PATTERN: Normal bowel gas pattern. No dilated loops. CALCIFICATIONS: No suspicious calcifications. SOFT TISSUES: No gross mass or suggestion of organomegaly. HARDWARE: None in the abdomen. BONES: No acute fracture. No worrisome bone lesions. OTHER: Interval placement of an enteric tube. Tip projects over the distal stomach. IMPRESSION: Interval placement of enteric tube with tip projecting over the distal stomach. TECHNICAL DOCUMENTATION: JOB ID: [id number] [employer]- All Rights Reserved Reading location - IP/workstation name: [email or web address]
[2017-10-22] MEDS: ONDANSETRON 4 MG TAB.RAPDIS NG PRN (17:24)
[2017-10-22] MEDS: METFORMIN HCL 500 MG TABLET NG SCH (17:24)
[2017-10-22] MEDS: AMLODIPINE BESYLATE 5 MG TABLET NG SCH (17:24)
[2017-10-22] MEDS: ISOSORBIDE DINITRATE 20 MG TABLET NG SCH ×2 (17:24→23:07)
[2017-10-22] MEDS: HYDRALAZINE HCL 50 MG TABLET NG SCH ×2 (17:24→23:07)
[2017-10-22] MEDS: ESCITALOPRAM OXALATE 10 MG TABLET NG SCH (21:14)
[2017-10-22] MEDS: ACETAMINOPHEN 325 MG TABLET NG PRN (21:14)
[2017-10-23] MEDS: ONDANSETRON 4 MG TAB.RAPDIS NG PRN (04:21)
[2017-10-23] MEDS: AMLODIPINE BESYLATE 5 MG TABLET NG SCH ×2 (05:11→18:46)
[2017-10-23] MEDS: LANSOPRAZOLE 30 MG TAB.RAP.DR NG SCH (05:11)
[2017-10-23] MEDS: HYDRALAZINE HCL 50 MG TABLET NG SCH ×3 (05:11→18:46)
[2017-10-23] MEDS: ISOSORBIDE DINITRATE 20 MG TABLET NG SCH ×2 (05:11→12:03)
[2017-10-23] MEDS: VALSARTAN 160 MG TABLET NG SCH (09:17)
[2017-10-23] MEDS: METFORMIN HCL 500 MG TABLET NG SCH ×2 (09:17→18:46)
[2017-10-23] MEDS: ENOXAPARIN SODIUM INJ 40 MG/0.4 ML DISP.SYRIN SUBCUT SCH (09:18)
[2017-10-23] MEDS: FLUTICASONE/SALMETEROL DISKUS 100-50 MCG/DOSE IH SCH ×2 (09:18→22:01)
[2017-10-23] MEDS: ACETAMINOPHEN 325 MG TABLET NG PRN ×2 (09:26→15:27)
--- NOTE | 2017-10-23 15:25 | PDOC PROGRESS REPORT ---
Subjective Progress Note for:: 10/23/17 Subjective:: She was seen by the bedside, yesterday she had persistent vomiting, KUB that was done was negative, NG tube was placed but it fell out this morning. She has not had any more vomiting for the last 8 hours, she complained of a headache since been on isosorbide, this be discontinued Reason For Visit: ACCELERATED HYPERTENSION WITH HEADACHE Physical Exam Vital Signs: Temp Pulse Resp BP Pulse Ox 98.8 F 74 12 144/71 H 96 10/23/17 11:23 10/23/17 14:00 10/23/17 11:23 10/23/17 11:23 10/23/17 11:23 Intake & Output 10/22/17 10/23/17 10/24/17 06:59 06:59 06:59 Intake Total 235 247 248 Output Total 550 Balance 235 -303 248 Weight 105.2 kg 108.9 kg General appearance: PRESENT: no acute distress Eye exam: PRESENT: PERRLA Respiratory exam: PRESENT: clear to auscultation sherry Cardiovascular exam: PRESENT: +S1 GI/Abdominal exam: PRESENT: soft Neurological exam: PRESENT: alert Results Impressions: KUB X-Ray 10/22/17 14:52 IMPRESSION: Interval placement of enteric tube with tip projecting over the distal stomach. Assessment & Plan - Diagnosis (1) Hypertensive emergency Is this a current diagnosis for this admission?: Yes Plan: She will continue present treatment, discontinue isosorbide because of headache (2) Vomiting Qualifiers: Vomiting type: unspecified Nausea presence: without nausea Is this a current diagnosis for this admission?: Yes
[2017-10-23] MEDS: HYDRALAZINE HCL INJ/PF 20 MG/1 ML SDV IV PRN (15:36)
[2017-10-23] MEDS: ONDANSETRON HCL INJ/PF 4 MG/2 ML SDV IV PRN ×2 (17:54)
[2017-10-23] MEDS: ESCITALOPRAM OXALATE 10 MG TABLET NG SCH (22:01)
[2017-10-24] MEDS: HYDRALAZINE HCL 50 MG TABLET NG SCH ×4 (01:08→18:35)
[2017-10-24] MEDS: LANSOPRAZOLE 30 MG TAB.RAP.DR NG SCH (06:23)
[2017-10-24] MEDS: AMLODIPINE BESYLATE 5 MG TABLET NG SCH ×2 (06:24→18:35)
[2017-10-24] MEDS ORDERED: BUTALB/ACETAMINOPHEN/CAFFEINE 1 TAB EACH PO PRN (07:41)
--- NOTE | 2017-10-24 07:41 | PDOC PROGRESS REPORT ---
Subjective Progress Note for:: 10/24/17 Subjective:: Patient continue to report headache and jitteriness. Her vomiting has improved. No chest pain or difficulty with breathing. Her blood pressure is comparatively improved. No fever or chills. Reason For Visit: ACCELERATED HYPERTENSION WITH HEADACHE Physical Exam Vital Signs: Temp Pulse Resp BP Pulse Ox 99.0 F 78 16 145/73 H 95 10/24/17 03:40 10/24/17 03:40 10/24/17 03:40 10/24/17 03:40 10/24/17 03:40 Intake & Output 10/23/17 10/24/17 10/25/17 06:59 06:59 06:59 Intake Total 247 2206 Output Total 550 Balance -303 2206 Weight 108.9 kg General appearance: PRESENT: no acute distress, obese Head exam: PRESENT: atraumatic, normocephalic Eye exam: PRESENT: conjunctiva pink, EOMI, PERRLA. ABSENT: scleral icterus Mouth exam: PRESENT: moist Respiratory exam: PRESENT: clear to auscultation sherry Cardiovascular exam: PRESENT: RRR. ABSENT: diastolic murmur, rubs, systolic murmur Vascular exam: PRESENT: normal capillary refill. ABSENT: pallor GI/Abdominal exam: PRESENT: normal bowel sounds, soft. ABSENT: distended, guarding, mass, organolmegaly, rebound, tenderness Extremities exam: ABSENT: pedal edema Musculoskeletal exam: PRESENT: normal inspection Neurological exam: PRESENT: alert, awake, oriented to person, oriented to place , oriented to time, oriented to situation, CN II-XII grossly intact. ABSENT: motor sensory deficit Psychiatric exam: PRESENT: appropriate affect, normal mood. ABSENT: homicidal ideation, suicidal ideation Skin exam: PRESENT: dry, intact, warm. ABSENT: cyanosis, rash Results Impressions: KUB X-Ray 10/22/17 14:52 IMPRESSION: Interval placement of enteric tube with tip projecting over the distal stomach. Assessment & Plan - Diagnosis (1) Accelerated essential hypertension Is this a current diagnosis for this admission?: Yes (2) Headache Qualifiers: Headache type: unspecified Headache chronicity pattern: unspecified pattern Intractability: not intractable Qualified Code(s): R51 - Headache Is this a current diagnosis for this admission?: Yes (3) Diabetes mellitus type 2 in obese Is this a current diagnosis for this admission?: Yes (4) CAD (coronary artery disease) Qualifiers: Coronary Disease-Associated Artery/Lesion type: [place] artery Associated angina: without angina Is this a current diagnosis for this admission?: Yes (5) Hyperlipidemia Qualifiers: Hyperlipidemia type: pure hypercholesterolemia Qualified Code(s): E78.00 - Pure hypercholesterolemia, unspecified; E78.0 - Pure hypercholesterolemia Is this a current diagnosis for this admission?: Yes (6) Asthma Qualifiers: Asthma severity: unspecified severity Asthma persistence: intermittent Is this a current diagnosis for this admission?: Yes (7) Depression Qualifiers: Depression Type: major depressive disorder Major depression recurrence: recurrent Active/Remission status: in remission of unspecified degree Qualified Code(s): F33.40 - Major depressive disorder, recurrent, in remission, unspecified Is this a current diagnosis for this admission?: Yes (8) BMI 39.0-39.9,adult Is this a current diagnosis for this admission?: Yes - Time Time Spent with patient: 25-34 minutes Medications reviewed and adjusted accordingly: Yes Anticipated discharge: Home Within: Other - Inpatient Certification Based on my medical assessment, after consideration of the patient's comorbidities, presenting symptoms, or acuity I expect that the services needed warrant INPATIENT care.: Yes I certify that my determination is in accordance with my understanding of Medicare's requirements for reasonable and necessary INPATIENT services [42 CFR 412.3e].: Yes Medical Necessity: Need Close Monitoring Due to Risk of Patient Decompensation, Need For Continuous Telemetry Monitoring, Risk of Complication if Not Cared For in Hospital Post 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 Continue all current medication management. I will start on HCTZ 25 mg p.o daily
--- NOTE | 2017-10-24 07:47 | Physician Advisory Note ---
Physician Advisor ProgressNote .: [facility] I have reviewed the medical record for this patient. Physician Advisor Statement: Attending, please document, if you agree: 1. "Nausea/vomiting, suspect due to " [HTN? ...] 2. "Hypertensive emergency, with DUE TO HTN" [headache? N/V? both? ...] OR: "Hypertensive urgency" [no s/s due to HTN] - "accelerated HTN" is old term, no longer accepted for coding Status: Appropriately brought in as Obs for suspected hypertensive emergency. Medicaid pt, next day BP improved but unable to go home next day w/po BP meds due to recurrent vomiting, unable to keep BP meds down consistently, requiring repeated doses of PRN IV & NGT Zofran. Appropriate for conversion to Inpatient status as of 10/22. Thanks! CK
[2017-10-24] MEDS: METFORMIN HCL 500 MG TABLET NG SCH ×2 (09:08→18:35)
[2017-10-24] MEDS: VALSARTAN 160 MG TABLET NG SCH (09:08)
[2017-10-24] MEDS: ENOXAPARIN SODIUM INJ 40 MG/0.4 ML DISP.SYRIN SUBCUT SCH (09:08)
[2017-10-24] MEDS: FLUTICASONE/SALMETEROL DISKUS 100-50 MCG/DOSE IH SCH ×2 (09:09→21:18)
[2017-10-24] MEDS: HYDROCHLOROTHIAZIDE 25 MG TABLET PO SCH (09:09)
[2017-10-24] MEDS: ESCITALOPRAM OXALATE 10 MG TABLET NG SCH (21:17)
[2017-10-25] MEDS: HYDRALAZINE HCL 50 MG TABLET NG SCH ×4 (00:27→17:40)
[2017-10-25] MEDS: AMLODIPINE BESYLATE 5 MG TABLET NG SCH ×2 (06:28→17:40)
[2017-10-25] MEDS: LANSOPRAZOLE 30 MG TAB.RAP.DR NG SCH (06:28)
[2017-10-25] MEDS: ENOXAPARIN SODIUM INJ 40 MG/0.4 ML DISP.SYRIN SUBCUT SCH (10:13)
[2017-10-25] MEDS: HYDROCHLOROTHIAZIDE 25 MG TABLET PO SCH (10:14)
[2017-10-25] MEDS: FLUTICASONE/SALMETEROL DISKUS 100-50 MCG/DOSE IH SCH (10:14)
[2017-10-25] MEDS: METFORMIN HCL 500 MG TABLET NG SCH ×2 (10:15→17:40)
[2017-10-25] MEDS: VALSARTAN 160 MG TABLET NG SCH (10:15)
[2017-10-25 10:47] LABS: ALANINE AMINOTRANSFERASE 35 U/L (9-52); ALBUMIN 4.2 g/dL (3.5-5.0); ALKALINE PHOSPHATASE 62 U/L (38-126); ANION GAP 13 (5-19); ASPARTATE AMINO TRANSFERASE 27 U/L (14-36); BILIRUBIN,DIRECT 0.4 mg/dL (0.0-0.4); BILIRUBIN,TOTAL 0.9 mg/dL (0.2-1.3); BLOOD UREA NITROGEN 23 mg/dL (7-20); CARBON DIOXIDE 28 mmol/L (22-30); CHLORIDE 99 mmol/L (98-107); CREATINE KINASE 132 U/L (30-135); GLUCOSE 112 mg/dL (75-110); POTASSIUM 4.3 mmol/L (3.6-5.0); SODIUM 139.7 mmol/L (137-145); TOTAL PROTEIN 7.5 g/dL (6.3-8.2)
[2017-10-25 18:44] VITALS: BP 147/80
--- NOTE | 2017-10-25 19:07 | PDOC DISCHARGE SUMMARY ---
General - Admit/Disc Date/PCP Admission Date/Primary Care Provider: 10/24/17 08:09 MARBELLA HENNY Discharge Date: 10/25/17 - Discharge Diagnosis (1) Hypertensive emergency Is this a current diagnosis for this admission?: Yes Summary: With headache, nausea, and vomiting. (2) Headache Is this a current diagnosis for this admission?: Yes Summary: See attending physician orders. (3) Nausea & vomiting Is this a current diagnosis for this admission?: Yes Summary: See attending physician orders. (4) Diabetes mellitus type 2 in obese Is this a current diagnosis for this admission?: Yes (5) CAD (coronary artery disease) Is this a current diagnosis for this admission?: Yes (6) Hyperlipidemia Is this a current diagnosis for this admission?: Yes (7) Asthma Is this a current diagnosis for this admission?: Yes (8) Depression Is this a current diagnosis for this admission?: Yes (9) BMI 39.0-39.9,adult Is this a current diagnosis for this admission?: Yes - Additional Information Resuscitation Status: Full Code Discharge Diet: Cardiac, Diabetic Discharge Activity: Activity As Tolerated Prescriptions: Amlodipine/Valsartan/Hcthiazid [Vjvqm-Omlnv-Liff 10-320-25 mg] 1 each PO DAILY # 30 tablet Butalb/Acetaminophen/Caffeine [Fioricet (50-325-40 mg) Tablet] 1 tab PO Q6HP PRN #30 each PRN Reason: For Headache Hydralazine HCl 100 mg PO TID #90 tablet Home Medications: Escitalopram Oxalate [Lexapro 10 mg Tablet] 10 mg PO QHS 07/15/13 Fluticasone/Salmeterol [Advair 100-50 Diskus 28 Dose] 1 inh IH Q12H 07/15/13 Metformin HCl [Glucophage 500 mg Tablet] 500 mg PO BID 09/12/13 Dexlansoprazole [Dexilant 60 mg Capsule] 60 mg PO DAILY 10/18/14 Amlodipine/Valsartan/Hcthiazid [Zbzts-Otjwi-Rfrp 10-320-25 mg] 1 each PO DAILY # 30 tablet 10/25/17 Butalb/Acetaminophen/Caffeine [Fioricet (50-325-40 mg) Tablet] 1 tab PO Q6HP PRN #30 each 10/25/17 Hydralazine HCl 100 mg PO TID #90 tablet 10/25/17 History of Present Illness Patient complains of: Severely elevated blood pressure with headche, unsteadiness of gait, nausea History of Present Illness: UYEN PAL is a 52 year old female known to my practice who was referred to the office earlier today from [facility] due severely elevated blood pressure while trying to get a left foot osteotomy procedure. Patient reported associated feeling of tiredness and wobbling gait with walking. She reported slight headache. She denied definite chest pain, palpitation or difficulty with breathing. In the office her blood pressure was still very elevated at about 201/113 mmHg necessitating administration of Clonidine 0.2 mg orally x 1 dose and referral to the ED at [facility] for further evaluation and management. Patient reported compliance with her medication and dietary restrictions. She denied illicit drug usage, alcohol, or tobacco product usage. Her elevation in the ED was significant for elevated blood pressure with slight response to IV Hydralazine administration but rebound in less than 1 hour thereafter. She was started on oral Hydralazine with IV administration if systolic blood pressure is over 160mmHg. Caution was exercise due to patient's long standing history of severe hypertension and extensive workup did not reveal any causative factor. Her morbidities include Asthma, Hypertension, Coronary Artery Disease, Hyperlipidemia, Diabetes Mellitus Type 2, and Depression. She was advised hospitalization on observation bed for further evaluation and management of her severe hypertension with headache. Hospital Course Hospital Course: Patient was admitted for hypertensive emergency with headache, nausea, vomiting and unsteady gait. She was management with IV Hydralazine and significant adjustment was made eve her anti hypertensive medication management. Her headache did persist with need for medication management with Fioricet. She developed nausea and vomiting that was treated with NTG gastric decompression and IV Zofran. Her blood pressure have bee n in acceptable range over last 24 hours with resolution of her associated symptoms. She is agreeable to discharge home today. She will follow up in the office as instructed upon discharge. I did emphasized compliance with medication and dietary restriction as well as maintenance of less stressful lifestyle during my bedside visit prior to her discharge. Physical Exam Vital Signs: Temp Pulse Resp BP Pulse Ox 98.3 F 92 18 147/80 H 99 10/25/17 18:39 10/25/17 18:39 10/25/17 18:39 10/25/17 18:39 04/17/18 18:39 Intake & Output 10/24/17 10/25/17 10/26/17 06:59 06:59 06:59 Intake Total 1851 891 Balance 1851 891 Weight 108.9 kg Physical Exam: General appearance: PRESENT: no acute distress, obese Head exam: PRESENT: atraumatic, normocephalic Eye exam: PRESENT: conjunctiva pink, EOMI, PERRLA. ABSENT: scleral icterus Mouth exam: PRESENT: moist Respiratory exam: PRESENT: clear to auscultation sherry Cardiovascular exam: PRESENT: RRR. ABSENT: diastolic murmur, rubs, systolic murmur Vascular exam: PRESENT: normal capillary refill. ABSENT: pallor GI/Abdominal exam: PRESENT: normal bowel sounds, soft. ABSENT: distended, guarding, mass, organomegaly, rebound, tenderness Extremities exam: ABSENT: pedal edema Musculoskeletal exam: PRESENT: normal inspection Neurological exam: PRESENT: alert, awake, oriented to person, oriented to place , oriented to time, oriented to situation, CN II-XII grossly intact. ABSENT: motor sensory deficit Psychiatric exam: PRESENT: appropriate affect, normal mood. ABSENT: homicidal ideation, suicidal ideation Skin exam: PRESENT: dry, intact, warm. ABSENT: cyanosis, rash Results Laboratory Results: 10/25/17 09:47 10/25/17 09:47 Sodium 139.7 Potassium 4.3 Chloride 99 Carbon Dioxide 28 Anion Gap 13 BUN 23 H Creatinine 1.38 H Est GFR ( Amer) 49 L Est GFR (Non-Af Amer) 40 L Glucose 112 H Calcium 10.0 Total Bilirubin 0.9 AST 27 ALT 35 Alkaline Phosphatase 62 Total Protein 7.5 Albumin 4.2 10/25/17 09:47 Creatine Kinase 132 Impressions: KUB X-Ray 10/22/17 14:52 IMPRESSION: Interval placement of enteric tube with tip projecting over the distal stomach. Qualifiers - * PATEINT BEING DISCHARGED WITH ANY OF THE FOLLOWING DIAGNOSIS?: No Plan Discharge Plan: Discharge home today. Follow up in the office as instructed upon discharge. Time Spent: Greater than 30 Minutes - More than 50% of this 40 mins visit was spent in patient counseling and post discharge care plan.
== END 2017-10-25 19:13 | disposition home or self-care (01) | DRG 305 ==
LOC: ER 11:36 → EH 15:22 → 3N 17:25 → OBSVTOIN 10-24 08:09
PROVIDERS: ADMIT Internal Medicine Geriatric Medicine; ATTEND Internal Medicine Geriatric Medicine
DX: I16.1 Hypertensive emergency (principal); F33.40 Major depressive disorder, recurrent, in remission, unspecified; Z68.41 Body mass index [BMI] 40.0-44.9, adult; I10 Essential (primary) hypertension; R51 Headache; I25.10 Atherosclerotic heart disease of native coronary artery without angina pectoris; E78.00 Pure hypercholesterolemia, unspecified; E11.9 Type 2 diabetes mellitus without complications; J45.909 Unspecified asthma, uncomplicated; E66.9 Obesity, unspecified; G47.33 Obstructive sleep apnea (adult) (pediatric)
CPT/HCPCS: 36415; 74018; 80053; 81001; 82550; 82962; 84484; 85025; 93005; 93010; 96374; 99291; G0378; J0360; J1650; J2405; J3490; S0119

== ENCOUNTER → 2019-06-04 | Outpatient (CLI) | payer MEDICAID ==
--- NOTE | 2019-06-04 09:14 | RADIOLOGY REPORT (SQ) ---
EXAM DESCRIPTION: U/S ABD AORTIC SCREENING COMPLETED DATE/TIME: 06/04/2019 7:42 am REASON FOR STUDY: HTN (I10) I10 ESSENTIAL (PRIMARY) HYPERTENSION COMPARISON: None. TECHNIQUE: Static and dynamic grayscale images acquired of the aorta and stored on PACs. Selected co deirdre Doppler and spectral images recorded. LIMITATIONS: None. FINDINGS: AORTIC CALIBER MAXIMAL PROXIMAL: 2.7 2.0 cm. MID: 2.0 cm. DISTAL: 2.0 cm. ILIAC DIAMETER RIGHT: 4.3 cm. LEFT: 1.3 cm. OTHER: No other significant finding. IMPRESSION: NO ABDOMINAL AORTIC ANEURYSM. COMMENT: Aortic aneurysm imaging followup: Negative, no followup necessary. *Based upon the Society for Vascular Surgery Guidelines: J Vasc Surg. 2009 Oct;50(4 Suppl):S2-49 *For aortas of maximum diameter of 2.6-2.9 cm meeting the criteria for AAA (?1.5 x proximal normal se gment) TECHNICAL DOCUMENTATION: JOB ID: [id number] [employer]- All Rights Reserved Reading location - IP/workstation name: [email or web address]
== END ==
LOC: RAD 07:01
PROVIDERS: ATTEND Internal Medicine Geriatric Medicine
DX: I10 Essential (primary) hypertension (principal)
CPT/HCPCS: 76706

== ENCOUNTER → 2019-08-13 | Outpatient (CLI) | payer MEDICAID ==
--- NOTE | 2019-08-13 12:48 | WOMENS IMAGING REPORT ---
EXAM DESCRIPTION: 3D SCREENING MAMMO BILAT COMPLETED DATE/TIME: 08/13/2019 11:18 am REASON FOR STUDY: Z12.31 ENCOUNTER FOR SCREENING MAMMOGRAM FOR MALIGNANT NEOPLASM OF BREAST Z12.31 ENCNTR SCREEN MAMMOGRAM FOR MALIGNANT NEOPLASM OF MAX COMPARISON: Multiple since 2010 EXAM PARAMETERS: Views: Standard craniocaudal and mediolateral oblique views of each breast recorded using digital acquisition and breast tomosynthesis. Read with the assistance of CAD. .[facility] - [employer]st Version 9.2 LIMITATIONS: None. FINDINGS: No suspicious masses, suspicious calcifications or architectural distortion. No areas of c oncern. IMPRESSION: NEGATIVE MAMMOGRAM. BIRADS 1. BREAST DENSITY: b. There are scattered areas of fibroglandular density. BIRAD: ASSESSMENT: 1 NEGATIVE RECOMMENDATION: ROUTINE SCREENING Please continue yearly screening mammography/tomosynthesis in August 2020 COMMENT: The patient has been notified of the results by letter per MQSA requirements. Additional no tification policies are in place for contacting patient with suspicious or incomplete findings. Quality ID #[id number]: The [employer] recommends an annual screening mammogram for women aged 40 years or over. This facility utilizes a reminder system to ensure that all patients receive reminder letters, and/or direct phone calls for appointments. This includes reminders for routine scr eening mammograms, diagnostic mammograms, or other Breast Imaging Interventions when appropriate. Th is patient will be placed in the appropriate reminder system. TECHNICAL DOCUMENTATION: FINDING NUMBER: (1) ASSESSMENT: (1) JOB ID: [id number] [employer]- All Rights Reserved Reading location - IP/workstation name: [email or web address]
== END ==
LOC: WI 10:45
PROVIDERS: ATTEND Internal Medicine Geriatric Medicine
DX: Z12.31 Encounter for screening mammogram for malignant neoplasm of breast (principal)
CPT/HCPCS: 77063; 77067